=== PATIENT | female | born 1955 | race Caucasian/White ===

== ENCOUNTER 2016-09-10 16:33 | Emergency (ER) | payer OTHER ==
[2016-09-10] MEDS ORDERED: NAPROXEN 250 MG TAB As Ordered ONE (17:40)
--- NOTE | 2016-09-10 18:44 | REP ---
RIGHT RIB SERIES: Four views of the right ribs are performed. There is no evidence of acute fracture or bone lesion. An accompanying view of the chest demonstrates no acute infiltrate or pleural effusion. The heart and mediastinum are within normal limits. IMPRESSION: No evidence of right rib fracture. Signed by Kevin Giang MD 09/10/2016 07:17 P
--- NOTE | 2016-09-10 18:49 | EDDOCDS ---
Nurse's Notes [facility] Name: Juliana Fleming Age: 60 yrs Sex: Female : 1955 Arrival Date: 09/10/2016 Time: 16:33 Bed TR2 Private MD: Eladio Srinivasan Diagnosis: Other chest pain-Musculoskeletal, Right-Sided Presentation: 09/10 16:36 Presenting complaint: Patient states: pt reports falling on ice on 09/01/16, reports ead landing on right side. c/o right breast pain. states "I think I broke a rib.". Adult Sepsis Screening: The patient does not have new or worsening altered mentation. Patient's respiratory rate is less than 22. Systolic blood pressure is greater than 100. Patient has a qSOFA score of 0- Negative Sepsis Screen. Suicide/Homicide risk assessment- the patient denies having any suicidal and/or homicidal ideations and does not present with any other emotional, behavioral or mental health complaints. Status: Patient is not a service representative or dependent. Transition of care: patient was not received from another setting of care. 16:36 Acuity: JOSE E Level 4 ead 16:36 Method Of Arrival: Walkin/Carried/Asstd ead Triage Assessment: 16:39 General: Appears in no apparent distress, well nourished, well groomed, Behavior is ead appropriate for age, cooperative. Pain: Location: right breast Pain currently is 7 out of 10 on a pain scale. HIV screening NA for this visit Offered previously. Neurological: No deficits noted. Respiratory: Airway is patent Respiratory effort is even, unlabored, Reports pain with cough. Derm: Skin is pink, warm & dry. Musculoskeletal: Reports pain in right breast. Historical: - Allergies: Adhesives; Amitriptyline; Augmentin; Minocycline; Propranolol; Paxil; Sertraline; steri strips; Topamax; - Home Meds: 1. Neurontin 300 mg Oral tab 1 cap twice a day (Last dose: 09/10/2016) 2. azelastine nasal as needed 3. Claritin 10 mg Oral tab 1 tab as needed 4. Imitrex 50 mg Oral tab 1 tab as needed 5. Imitrex Sub-Q as needed 6. 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 - Family history: Not pertinent. - : The pt / caregiver states he / she is not on anticoagulants. Home medication list is obtained from the patient, [employer] import data. - Exposure Risk Screening:: None identified. Screenin:40 Screening information is obtained from the patient. Fall risk: No risks identified. ttb Assistance ADL's: requires no assistance with activities of daily living. Abuse/DV Screen: The patient / caregiver reports he/she is: not in a situation that causes fear, pain or injury. Nutritional screening: No deficits noted. Advance Directives: Currently, there is no health care proxy. home support is adequate. Assessment: 17:40 Adult Sepsis Screening: The patient does not have new or worsening altered mentation. ttb Patient's respiratory rate is less than 22. Systolic blood pressure is greater than 100. Patient has a qSOFA score of 0- Negative Sepsis Screen. General: Appears in no apparent distress, uncomfortable, well nourished, well groomed, Behavior is appropriate for age, cooperative, pleasant. Pain: Location: right chest. Neurological: Level of Consciousness is awake, alert. Cardiovascular: Chest pain is denied. Respiratory: Airway is patent Respiratory effort is even, unlabored, Denies cough. GI: Denies nausea, vomiting, pain. Derm: Skin is normal. Injury Description: occurred 9 days ago. 18:48 General: Appears in no apparent distress, Behavior is appropriate for age, cooperative, ead pleasant. Pain:. Neurological: No deficits noted. Respiratory: Airway is patent Respiratory effort is even, unlabored. Derm: Skin is pink, warm & dry. Vital Signs: 16:35 BP 168 / 86; Pulse 68; Resp 16; Temp 97.8(O); Pulse Ox 96% ; Weight 66.68 kg; Height 5 cmb ft. 3 in. (160.02 cm); Pain 7/10; 18:12 BP 132 / 78 Sitting (man/reg); ttb 16:35 Body Mass Index 26.04 (66.68 kg, 160.02 cm) cmb Vitals: 16:35 Log In Time: September 10, 2016 at 16:33. cmb ED Course: 16:34 Patient visited by Irina Bond. cmb 16:34 Patient moved to Waiting cmb 16:35 Eladio Srinivasan MD is Private Physician. cmb 16:36 Patient moved to Pre RCE cmb 16:37 Triage Initiated ead 16:54 Patient moved to Triage 3 mlb1 17:26 Alecia Pickard PA-C is PHCP. ef1 17:26 Velvet Hendrix MD is Attending Physician. ef1 17:26 Patient visited by Alecia Pickard PA-C. ef1 17:39 Patient moved to PR1 / 25 ttb 17:40 The patient / caregiver is instructed regarding the plan of care and ED course. Patient ttb has correct armband on for positive identification. 17:40 No IV's were initiated during this patient's visit. No procedures done that require ttb assistance. 17:47 Patient visited by Ana Luisa Nowak RN. ttb 18:08 Eladio Srinivasan MD is Referral Physician. ef1 18:14 [facility] Payment Agreement was scanned into [employer] and attached to record. jpb 18:48 Patient moved to TR2 ead Administered Medications: 17:42 Drug: Naproxen 500 mg [naproxen 250 mg tablet (2 tabs)] Route: PO; ttb RT: 17:49 Incentive Spirometry performed: 5 inspirations. Volume of inspiration: 2000 mls. sd7 Patient Education: Educated pt on proper technique and use of Incentive Spirometer. Order Results: There are currently no results for this order. Outcome: 18:08 Discharge ordered by Provider. ef1 18:48 Discharge Assessment: Patient awake and alert. obeys commands, Oriented to person, ead place and time. patient administered narcotics - no. The following High Risk Discharge criteria are identified: None. Discharged to home ambulatory. Condition: improved. Discharge instructions given to patient, Instructed on discharge instructions, follow up and referral plans. medication usage, no driving heavy equipment, no drinking with medication, Demonstrated understanding of instructions, medications, Pt was receptive of discharge instructions/ teaching. Prescriptions given X 2. No special radiology studies were completed. Property sent home with patient. 18:49 Patient left the ED. ead Signatures: Shaun Gardner RN RN mlb1 Alecia Pickard PA-C PALesterC ef1 Abdiaziz Miller [place] cmb Conner, Teresa, RN RN Shaila DriverRN RN Kellie Quinones,RT RT sd7 MTDD
--- NOTE | 2016-09-10 18:49 | EDDOCDS ---
Physician Documentation [facility] Name: Juliana Fleming Age: 60 yrs Sex: Female : 1955 Arrival Date: 09/10/2016 Time: 16:33 Bed TR2 Private MD: Eladio Srinivasan Disposition: 09/10/16 18:08 Discharged to Home/Self Care. Impression: Other chest pain - Musculoskeletal, Right-Sided. - Condition is Stable. - Discharge Instructions: Musculoskeletal Pain. - Prescriptions for Mobic 7.5 mg Oral Tablet - take 1 tablet by ORAL route once daily take with food; 20 tablet. Zanaflex 4 mg Oral Tablet - take 1 tablet by ORAL route At bedtime As needed Will cause drowsiness, do not take while driving/operating heavy machinery.; 20 tablet. - Medication Reconciliation, Local Pharmacy Hours form. - Follow up: Eladio Srinivasan; When: 1 - 2 days; Reason: Recheck today's complaints, Continuance of care. Follow up: Emergency Department; Reason: Worsening of conditions. - Problem is new. - Symptoms have improved. Historical: - Allergies: Adhesives; Amitriptyline; Augmentin; Minocycline; Propranolol; Paxil; Sertraline; steri strips; Topamax; - Home Meds: 1. Neurontin 300 mg Oral tab 1 cap twice a day (Last dose: 09/10/2016) 2. azelastine nasal as needed 3. Claritin 10 mg Oral tab 1 tab as needed 4. Imitrex 50 mg Oral tab 1 tab as needed 5. Imitrex Sub-Q as needed 6. 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 - Family history: Not pertinent. - : The pt / caregiver states he / she is not on anticoagulants. Home medication list is obtained from the patient, [employer] import data. - Exposure Risk Screening:: None identified. Vital Signs: 09/10 16:35 BP 168 / 86; Pulse 68; Resp 16; Temp 97.8(O); Pulse Ox 96% ; Weight 66.68 kg / 147 lbs; cmb Height 5 ft. 3 in. (160.02 cm); Pain 7/10; 18:12 BP 132 / 78 Sitting (man/reg); ttb 16:35 Body Mass Index 26.04 (66.68 kg, 160.02 cm) cmb MDM: 16:41 Rib Unilat W/PA Chest Only Ordered. EDMS 17:38 Naproxen 500 mg PO once; administer with food or milk ordered. ef1 17:38 Ice Pack ordered. ef1 17:38 Call Respiratory ordered. ef1 17:41 Call Respiratory complete. rs6 18:08 Recheck B/P ordered. ef1 18:13 Financial registration complete. jpb 18:14 [facility] Payment Agreement was scanned into [employer] and attached to record. jpb Administered Medications: 17:42 Drug: Naproxen 500 mg [naproxen 250 mg tablet (2 tabs)] Route: PO; ttb Signatures: Dispatcher [employer] EDMS Alecia Pickard, PA-C PA-C ef1 Abdiaziz Miller Teresa RN RN ttb Shaila Nielson,RN RN Karyn Jesus, JHON POWDER BLENDER rs6 The chart was reviewed and I authenticate all verbal orders and agree with the evaluation and treatment provided.Attachments: 18:14 [facility] Payment Agreement jpb MTDD
--- NOTE | 2016-09-12 19:50 | EDDOCDS ---
Physician Documentation [facility] Name: Juliana Fleming Age: 60 yrs Sex: Female : 1955 Arrival Date: 09/10/2016 Time: 16:33 Bed TR2 Private MD: Eladio Srinivasan Disposition: 09/10/16 18:08 Discharged to Home/Self Care. Impression: Other chest pain - Musculoskeletal, Right-Sided. - Condition is Stable. - Discharge Instructions: Musculoskeletal Pain. - Prescriptions for Mobic 7.5 mg Oral Tablet - take 1 tablet by ORAL route once daily take with food; 20 tablet. Zanaflex 4 mg Oral Tablet - take 1 tablet by ORAL route At bedtime As needed Will cause drowsiness, do not take while driving/operating heavy machinery.; 20 tablet. - Medication Reconciliation, Local Pharmacy Hours form. - Follow up: Eladio Srinivasan; When: 1 - 2 days; Reason: Recheck today's complaints, Continuance of care. Follow up: Emergency Department; Reason: Worsening of conditions. - Problem is new. - Symptoms have improved. Historical: - Allergies: Adhesives; Amitriptyline; Augmentin; Minocycline; Propranolol; Paxil; Sertraline; steri strips; Topamax; - Home Meds: 1. Neurontin 300 mg Oral tab 1 cap twice a day (Last dose: 09/10/2016) 2. azelastine nasal as needed 3. Claritin 10 mg Oral tab 1 tab as needed 4. Imitrex 50 mg Oral tab 1 tab as needed 5. Imitrex Sub-Q as needed 6. 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 - Family history: Not pertinent. - : The pt / caregiver states he / she is not on anticoagulants. Home medication list is obtained from the patient, [employer] [place] import data. - Exposure Risk Screening:: None identified. Vital Signs: 09/10 16:35 BP 168 / 86; Pulse 68; Resp 16; Temp 97.8(O); Pulse Ox 96% ; Weight 66.68 kg / 147 lbs; cmb Height 5 ft. 3 in. (160.02 cm); Pain 7/10; 18:12 BP 132 / 78 Sitting (man/reg); ttb 16:35 Body Mass Index 26.04 (66.68 kg, 160.02 cm) cmb MDM: 16:41 Rib Unilat W/PA Chest Only Ordered. EDMS 17:38 Naproxen 500 mg PO once; administer with food or milk ordered. ef1 17:38 Ice Pack ordered. ef1 17:38 Call Respiratory ordered. ef1 17:41 Call Respiratory complete. rs6 18:08 Recheck B/P ordered. ef1 18:13 Financial registration complete. jpb 18:14 [facility] Payment Agreement was scanned into [employer] and attached to record. jpb 09/12 08:31 T-Sheet-- Draft Copy was scanned into [employer] and attached to record. gb Administered Medications: 09/10 17:42 Drug: Naproxen 500 mg [naproxen 250 mg tablet (2 tabs)] Route: PO; ttb Signatures: Dispatcher [employer] EDMS Betty Gamez, Reg Reg gb Alecia Pickard, PETROS MORRELL ef1 Abdiaziz Miller Teresa, RN RN ttb Shaila Nielson,RN RN eaKaryn Lagunas, COMMERCIAL PRINT SALESMAN COMMERCIAL PRINT SALESMAN rs6 The chart was reviewed and I authenticate all verbal orders and agree with the evaluation and treatment provided.Attachments: 18:14 [facility] Payment Agreement b 09/12 08:31 T-Sheet-- Draft Copy gb Chart Complete MTDD
--- NOTE | 2016-09-12 19:50 | EDDOCDS ---
Nurse's Notes [facility] Name: Juliana Fleming Age: 60 yrs Sex: Female : 1955 Arrival Date: 09/10/2016 Time: 16:33 Bed TR2 Private MD: Eladio Srinivasan Diagnosis: Other chest pain-Musculoskeletal, Right-Sided Presentation: 09/10 16:36 Presenting complaint: Patient states: pt reports falling on ice on 09/01/16, reports ead landing on right side. c/o right breast pain. states "I think I broke a rib.". Adult Sepsis Screening: The patient does not have new or worsening altered mentation. Patient's respiratory rate is less than 22. Systolic blood pressure is greater than 100. Patient has a qSOFA score of 0- Negative Sepsis Screen. Suicide/Homicide risk assessment- the patient denies having any suicidal and/or homicidal ideations and does not present with any other emotional, behavioral or mental health complaints. Status: Patient is not a food service order clerk or dependent. Transition of care: patient was not received from another setting of care. 16:36 Acuity: JOSE E Level 4 ead 16:36 Method Of Arrival: Walkin/Carried/Asstd ead Triage Assessment: 16:39 General: Appears in no apparent distress, well nourished, well groomed, Behavior is ead appropriate for age, cooperative. Pain: Location: right breast Pain currently is 7 out of 10 on a pain scale. HIV screening NA for this visit Offered previously. Neurological: No deficits noted. Respiratory: Airway is patent Respiratory effort is even, unlabored, Reports pain with cough. Derm: Skin is pink, warm & dry. Musculoskeletal: Reports pain in right breast. Historical: - Allergies: Adhesives; Amitriptyline; Augmentin; Minocycline; Propranolol; Paxil; Sertraline; steri strips; Topamax; - Home Meds: 1. Neurontin 300 mg Oral tab 1 cap twice a day (Last dose: 09/10/2016) 2. azelastine nasal as needed 3. Claritin 10 mg Oral tab 1 tab as needed 4. Imitrex 50 mg Oral tab 1 tab as needed 5. Imitrex Sub-Q as needed 6. 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 - Family history: Not pertinent. - : The pt / caregiver states he / she is not on anticoagulants. Home medication list is obtained from the patient, [employer] import data. - Exposure Risk Screening:: None identified. Screenin:40 Screening information is obtained from the patient. Fall risk: No risks identified. ttb Assistance ADL's: requires no assistance with activities of daily living. Abuse/DV Screen: The patient / caregiver reports he/she is: not in a situation that causes fear, pain or injury. Nutritional screening: No deficits noted. Advance Directives: Currently, there is no health care proxy. home support is adequate. Assessment: 17:40 Adult Sepsis Screening: The patient does not have new or worsening altered mentation. ttb Patient's respiratory rate is less than 22. Systolic blood pressure is greater than 100. Patient has a qSOFA score of 0- Negative Sepsis Screen. General: Appears in no apparent distress, uncomfortable, well nourished, well groomed, Behavior is appropriate for age, cooperative, pleasant. Pain: Location: right chest. Neurological: Level of Consciousness is awake, alert. Cardiovascular: Chest pain is denied. Respiratory: Airway is patent Respiratory effort is even, unlabored, Denies cough. GI: Denies nausea, vomiting, pain. Derm: Skin is normal. Injury Description: occurred 9 days ago. 18:48 General: Appears in no apparent distress, Behavior is appropriate for age, cooperative, ead pleasant. Pain:. Neurological: No deficits noted. Respiratory: Airway is patent Respiratory effort is even, unlabored. Derm: Skin is pink, warm & dry. Vital Signs: 16:35 BP 168 / 86; Pulse 68; Resp 16; Temp 97.8(O); Pulse Ox 96% ; Weight 66.68 kg; Height 5 cmb ft. 3 in. (160.02 cm); Pain 7/10; 18:12 BP 132 / 78 Sitting (man/reg); ttb 16:35 Body Mass Index 26.04 (66.68 kg, 160.02 cm) cmb Vitals: 16:35 Log In Time: September 10, 2016 at 16:33. cmb ED Course: 16:34 Patient visited by Irina Bond. cmb 16:34 Patient moved to Waiting cmb 16:35 Eladio Srinivasan MD is Private Physician. cmb 16:36 Patient moved to Pre RCE cmb 16:37 Triage Initiated ead 16:54 Patient moved to Triage 3 mlb1 17:26 Alecia Pickard PA-C is PHCP. ef1 17:26 Velvet Hendrix MD is Attending Physician. ef1 17:26 Patient visited by Alecia Pickard PA-C. ef1 17:39 Patient moved to PR1 / 25 ttb 17:40 The patient / caregiver is instructed regarding the plan of care and ED course. Patient ttb has correct armband on for positive identification. 17:40 No IV's were initiated during this patient's visit. No procedures done that require ttb assistance. 17:47 Patient visited by Ana Luisa Nowak RN. ttb 18:08 Eladio Srinivasan MD is Referral Physician. ef1 18:14 [facility] Payment Agreement was scanned into [employer] and attached to record. jpb 18:48 Patient moved to TR2 ead 19:14 Rib Unilat W/PA Chest Only Returned. EDMS 09/12 08:31 T-Sheet-- Draft Copy was scanned into [employer] and attached to record. gb Administered Medications: 09/10 17:42 Drug: Naproxen 500 mg [naproxen 250 mg tablet (2 tabs)] Route: PO; ttb RT: 17:49 Incentive Spirometry performed: 5 inspirations. Volume of inspiration: 2000 mls. sd7 Patient Education: Educated pt on proper technique and use of Incentive Spirometer. Order Results: Radiology Order: Rib Unilat W/PA Chest Only Test: Rib Unilat W/PA Chest Only REASON FOR EXAMINATION: Trauma; RIGHT RIB SERIES:; ; Four views of the right ribs are performed. There is no evidence of acute; fracture or bone lesion.; ; An accompanying view of the chest demonstrates no acute infiltrate or pleural; effusion. The heart and mediastinum are within normal limits.; ; IMPRESSION:; ; No evidence of right rib fracture.; ; ; Signed by; Kevin Giang MD 09/10/2016 07:17 P; Outcome: 18:08 Discharge ordered by Provider. ef1 18:48 Discharge Assessment: Patient awake and alert. obeys commands, Oriented to person, ead place and time. patient administered narcotics - no. The following High Risk Discharge criteria are identified: None. Discharged to home ambulatory. Condition: improved. Discharge instructions given to patient, Instructed on discharge instructions, follow up and referral plans. medication usage, no driving heavy equipment, no drinking with medication, Demonstrated understanding of instructions, medications, Pt was receptive of discharge instructions/ teaching. Prescriptions given X 2. No special radiology studies were completed. Property sent home with patient. 18:49 Patient left the ED. ead Signatures: Dispatcher [employer] EDMS Betty Gamez, Reg Reg Shaun Biggs RN RN mlb1 Alecia Pickard, PA-C PA-C ef1 Abdiaziz Milelr [place] cmb Conner, Teresa RN RN Shaila DriverRN RN ead Kellie Mariscal,RT RT sd7 Chart Complete MTDD
--- NOTE | 2016-09-12 19:50 | EDDOCDS ---
Physician Documentation [facility] Name: Juliana Fleming Age: 60 yrs Sex: Female : 1955 Arrival Date: 09/10/2016 Time: 16:33 Bed TR2 Private MD: Eladio Srinivasan Disposition: 09/10/16 18:08 Discharged to Home/Self Care. Impression: Other chest pain - Musculoskeletal, Right-Sided. - Condition is Stable. - Discharge Instructions: Musculoskeletal Pain. - Prescriptions for Mobic 7.5 mg Oral Tablet - take 1 tablet by ORAL route once daily take with food; 20 tablet. Zanaflex 4 mg Oral Tablet - take 1 tablet by ORAL route At bedtime As needed Will cause drowsiness, do not take while driving/operating heavy machinery.; 20 tablet. - Medication Reconciliation, Local Pharmacy Hours form. - Follow up: Eladio Srinivasan; When: 1 - 2 days; Reason: Recheck today's complaints, Continuance of care. Follow up: Emergency Department; Reason: Worsening of conditions. - Problem is new. - Symptoms have improved. Historical: - Allergies: Adhesives; Amitriptyline; Augmentin; Minocycline; Propranolol; Paxil; Sertraline; steri strips; Topamax; - Home Meds: 1. Neurontin 300 mg Oral tab 1 cap twice a day (Last dose: 09/10/2016) 2. azelastine nasal as needed 3. Claritin 10 mg Oral tab 1 tab as needed 4. Imitrex 50 mg Oral tab 1 tab as needed 5. Imitrex Sub-Q as needed 6. 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 - Family history: Not pertinent. - : The pt / caregiver states he / she is not on anticoagulants. Home medication list is obtained from the patient, [employer] import data. - Exposure Risk Screening:: None identified. Vital Signs: 09/10 16:35 BP 168 / 86; Pulse 68; Resp 16; Temp 97.8(O); Pulse Ox 96% ; Weight 66.68 kg / 147 lbs; cmb Height 5 ft. 3 in. (160.02 cm); Pain 7/10; 18:12 BP 132 / 78 Sitting (man/reg); ttb 16:35 Body Mass Index 26.04 (66.68 kg, 160.02 cm) cmb MDM: 16:41 Rib Unilat W/PA Chest Only Ordered. EDMS 17:38 Naproxen 500 mg PO once; administer with food or milk ordered. ef1 17:38 Ice Pack ordered. ef1 17:38 Call Respiratory ordered. ef1 17:41 Call Respiratory complete. rs6 18:08 Recheck B/P ordered. ef1 18:13 Financial registration complete. jpb 18:14 [facility] Payment Agreement was scanned into [employer] and attached to record. jpb 09/12 08:31 T-Sheet-- Draft Copy was scanned into [employer] and attached to record. gb Administered Medications: 09/10 17:42 Drug: Naproxen 500 mg [naproxen 250 mg tablet (2 tabs)] Route: PO; ttb Signatures: Dispatcher [employer] EDMS Betty Gamez, Reg Reg gb Alecia Pickard, PETROS MORRELL ef1 Abdiaziz Miller Teresa, RN RN ttb Shaila Nielson,RN RN eaKaryn Lagunas, ADMINISTRATIVE VOLUNTEER ADMINISTRATIVE VOLUNTEER rs6 The chart was reviewed and I authenticate all verbal orders and agree with the evaluation and treatment provided.Attachments: 18:14 [facility] Payment Agreement b 09/12 08:31 T-Sheet-- Draft Copy gb Chart Complete MTDD
== END 2016-09-10 18:49 | disposition home or self-care (01) ==
LOC: M ED 16:33
DX: R07.89 Other chest pain (principal); W00.0XXA Fall on same level due to ice and snow, initial encounter; Y92.014 Private driveway to single-family (private) house as the place of occurrence of the external cause; Y93.89 Activity, other specified; Y99.8 Other external cause status; G43.909 Migraine, unspecified, not intractable, without status migrainosus; G70.9 Myoneural disorder, unspecified; Z79.899 Other long term (current) drug therapy; Z88.8 Allergy status to other drugs, medicaments and biological substances; Z88.1 Allergy status to other antibiotic agents; Z91.048 Other nonmedicinal substance allergy status

== ENCOUNTER → 2016-10-29 | Outpatient (REF) | payer OTHER | LOC: M SFHCPLAZ 11:52 | PROVIDERS: ATTEND Dermatology | DX: D04.5 Carcinoma in situ of skin of trunk (principal) ==

== ENCOUNTER → 2016-11-26 | Outpatient (REF) | payer OTHER | LOC: M SFHCPLAZ 15:50 | PROVIDERS: ATTEND Dermatology | DX: D23.60 Other benign neoplasm of skin of unspecified upper limb, including shoulder (principal) ==

== ENCOUNTER → 2017-03-30 | Outpatient (CLI) | payer OTHER ==
[~2017-03-30] MED LIST: ALEN70TA39 PO; BUPR150T5 PO; BUPR15TA PO; GABA-282 PO; IMIT50TA PO; IMIT6INJ SC; LISI-542 PO; SUMA100T2
[2017-04-03 00:07] LABS: GAD-65 AUTOANTIBODY <5.0 U/mL (0.0-5.0); VGCC ANTIBODY Negative (Negative)
== END ==
LOC: M WUC 18:29
PROVIDERS: ATTEND Psychiatry & Neurology Neurology
DX: M25.60 Stiffness of unspecified joint, not elsewhere classified (principal); M62.838 Other muscle spasm

== ENCOUNTER 2017-04-24 08:55 | Outpatient (CLI) | payer OTHER ==
[~2017-04-24] VITALS: Ht 160 cm; Wt 63.5 kg
[2017-04-24] MEDS ORDERED: NS 1,000 ML IV ONE (09:00)
[2017-04-24] MEDS ORDERED: PROPOFOL 200 MG/20 ML VIAL As Ordered ONE (09:49)
[2017-04-24] MEDS ORDERED: LIDOCAINE 2% INJ 100 MG/5 ML SDV (FOR ANES.) As Ordered ONE (09:49)
--- NOTE | 2017-04-24 10:00 | ROOR ---
Patient Name: Juliana Fleming Procedure Date: 04/24/2017 9:42 AM Date of : 1955 Age: 61 Room: [facility] Gender: Female Note Status: Finalized Procedure: Colonoscopy Indications: Screening for colorectal malignant neoplasm Providers: Twin ARMANDO MD Referring MD: HAMZAH ANTONIO MD Requesting Provider: Medicines: Monitored Anesthesia Care Complications: No immediate complications. Procedure: Pre-Anesthesia Assessment: - The heart rate, respiratory rate, oxygen saturations, blood pressure, adequacy of pulmonary ventilation, and response to care were monitored throughout the procedure. The Colonoscope was introduced through the anus and advanced to the cecum, identified by appendiceal orifice and ileocecal valve. The colonoscopy was performed without difficulty. The patient tolerated the procedure well. The quality of the bowel preparation was good. Findings: The perianal and digital rectal examinations were normal. The colon (entire examined portion) was moderately redundant. The entire examined colon appeared normal on direct and retroflexion views. (Exam: Complete, Prep: Good or Excellent.) Impression: - (Exam: Complete, Prep: Good or Excellent.) - Small internal hemorrhoids. - The colon is normal on direct and retroflexion views. - No specimens collected. Recommendation: - Repeat colonoscopy in 10 years for screening purposes. Twin Armando MD Twin ARMANDO MD 04/24/2017 10:00:09 AM This report has been signed electronically. Number of Addenda: 0 Note Initiated On: 04/24/2017 9:42 AM Estimated Blood Loss: Estimated blood loss: none.
[2017-04-24 10:15] VITALS: BP 129/77
== END 2017-04-24 10:20 | disposition home or self-care (01) ==
LOC: M OPP 08:55
PROVIDERS: ATTEND Internal Medicine Gastroenterology
DX: Z12.11 Encounter for screening for malignant neoplasm of colon (principal); K64.8 Other hemorrhoids; M19.90 Unspecified osteoarthritis, unspecified site; F41.9 Anxiety disorder, unspecified; F33.9 Major depressive disorder, recurrent, unspecified; G25.82 Stiff-man syndrome; Z79.899 Other long term (current) drug therapy; Z88.0 Allergy status to penicillin; Z88.1 Allergy status to other antibiotic agents; Z88.8 Allergy status to other drugs, medicaments and biological substances; Z91.018 Allergy to other foods; L23.1 Allergic contact dermatitis due to adhesives

== ENCOUNTER → 2017-08-13 | Outpatient (REF) | payer OTHER | LOC: M SFHCLERA 09:46 | PROVIDERS: ATTEND Dermatology | DX: L85.8 Other specified epidermal thickening (principal) ==

== ENCOUNTER → 2017-09-09 | Outpatient (REF) | payer OTHER | LOC: M LAB REF 11:57 | DX: L82.1 Other seborrheic keratosis (principal) ==

== ENCOUNTER → 2017-10-07 | Outpatient (REF) | payer OTHER ==
[2017-10-07 20:58] LABS: TOTAL 25(OH) VITAMIN D 20.8 NG/ML (30.0-100.0)
== END ==
LOC: M SFHCPLAZ 16:25 → M LRY 16:42
DX: E55.9 Vitamin D deficiency, unspecified (principal)
CPT/HCPCS: 82306

== ENCOUNTER → 2017-11-11 | Outpatient (REF) | payer OTHER | LOC: M SFHCLERA 13:49 | DX: R23.4 Changes in skin texture (principal) ==

== ENCOUNTER → 2018-04-21 | Outpatient (CLI) | payer OTHER ==
[2018-04-21 12:34] LABS: TOTAL 25(OH) VITAMIN D 36.9 NG/ML (30.0-100.0)
[2018-04-21 13:01] LABS: ANION GAP 5 MEQ/L (8-16); BLOOD UREA NITROGEN 13 MG/DL (7-18); CALCIUM LEVEL 8.9 MG/DL (8.8-10.2); CARBON DIOXIDE LEVEL 29 MEQ/L (21-32); CHLORIDE LEVEL 109 MEQ/L (98-107); GLOMERULAR FILTRATION RATE > 60.0 (>45); GLUCOSE, FASTING 89 MG/DL (70-100); POTASSIUM SERUM 4.6 MEQ/L (3.5-5.1); SODIUM LEVEL 143 MEQ/L (136-145)
== END ==
LOC: M WUC 10:35
DX: N18.2 Chronic kidney disease, stage 2 (mild) (principal); I12.9 Hypertensive chronic kidney disease with stage 1 through stage 4 chronic kidney disease, or unspecified chronic kidney disease
CPT/HCPCS: 82306

== ENCOUNTER → 2018-07-15 | Outpatient (REF) | payer OTHER ==
[2018-07-15 16:38] LABS: TOTAL 25(OH) VITAMIN D 26.3 NG/ML (30.0-100.0)
[2018-07-16 11:07] LABS: HEPATITIS B SURFACE ANTIBODY POSITIVE (POSITIVE)
[2018-07-21 00:06] LABS: POLIO ANTIBODIES/POLIOMYELITIS 1:16 (Neg:<1:8)
== END ==
LOC: M SFHCPLAZ 13:33
DX: Z78.9 Other specified health status (principal)

== ENCOUNTER → 2018-10-19 | Outpatient (REF) | payer OTHER ==
[~2018-10-19] MED LIST changes: -ALEN70TA39 PO; +ALEN70TA57 PO; -GABA-282 PO; +GABA-843 PO
[2018-10-19 18:21] LABS: BLOOD UREA NITROGEN 20 MG/DL (7-18); CALCIUM LEVEL 9.3 MG/DL (8.8-10.2); CARBON DIOXIDE LEVEL 31 MEQ/L (21-32); CHLORIDE LEVEL 105 MEQ/L (98-107); CREATININE FOR GFR 0.87 MG/DL (0.55-1.30); GLOMERULAR FILTRATION RATE > 60.0 (>45); GLUCOSE, FASTING 93 MG/DL (70-100); POTASSIUM SERUM 4.1 MEQ/L (3.5-5.1); SODIUM LEVEL 143 MEQ/L (136-145)
[2018-10-19 18:33] LABS: TOTAL 25(OH) VITAMIN D 33.2 NG/ML (30.0-100.0)
== END ==
LOC: M SFHCPLAZ 15:20
PROVIDERS: ATTEND Nurse Practitioner Family
DX: E55.9 Vitamin D deficiency, unspecified (principal); I10 Essential (primary) hypertension; N18.2 Chronic kidney disease, stage 2 (mild)

== ENCOUNTER → 2018-11-28 | Outpatient (CLI) | payer OTHER ==
--- NOTE | 2018-11-29 07:23 | REP ---
LEFT CALCANEUS: Two views left calcaneus performed. No fracture or dislocation is seen. There is a small inferior calcaneal spur. No other significant findings are seen. IMPRESSION: Mild inferior calcaneal spurring. Electronically Signed by Kevin Giang MD 11/29/2018 09:37 A
--- NOTE | 2018-11-29 07:23 | REP ---
LEFT FOOT SERIES: Four views of the left foot are performed. No fracture or dislocation is seen. There is a small inferior calcaneal spur. There is moderate narrowing at the first metatarsal phalangeal joint. There is mild diffuse narrowing of the interphalangeal joints. IMPRESSION: Mild degenerative changes as above. Electronically Signed by Kevin Giang MD 11/29/2018 09:37 A
== END ==
LOC: M WUC 17:16
PROVIDERS: ATTEND Physician Assistant
DX: M77.32 Calcaneal spur, left foot (principal)

== ENCOUNTER → 2019-02-01 | Outpatient (CLI) | payer OTHER ==
[~2019-02-01] MED LIST changes: -ALEN70TA57 PO; +ALEN70TA74 PO
[2019-02-01 13:15] LABS: BLOOD UREA NITROGEN 17 MG/DL (7-18); CARBON DIOXIDE LEVEL 30 MEQ/L (21-32); CHLORIDE LEVEL 106 MEQ/L (98-107); CHOLESTEROL LEVEL 210 MG/DL (<200); CHOLESTEROL RISK RATIO 3.088 (<5); CREATININE FOR GFR 0.87 MG/DL (0.55-1.30); GLOMERULAR FILTRATION RATE > 60.0 (>45); GLUCOSE, FASTING 74 MG/DL (70-100); HDL CHOLESTEROL 68 MG/DL (>40); LDL CHOLESTEROL 126 MG/DL (<100); NON-HDL-C 142 MG/DL; POTASSIUM SERUM 4.2 MEQ/L (3.5-5.1); SODIUM LEVEL 143 MEQ/L (136-145); TRIGLYCERIDES LEVEL 79 MG/DL (<150)
== END ==
LOC: M WUC 10:00
PROVIDERS: ATTEND Nurse Practitioner Family
DX: E78.5 Hyperlipidemia, unspecified (principal); I10 Essential (primary) hypertension

== ENCOUNTER → 2019-04-29 | Outpatient (REF) | payer OTHER | LOC: M SFHCPLAZ 12:18 | PROVIDERS: ATTEND Nurse Practitioner Family | DX: E78.5 Hyperlipidemia, unspecified (principal) ==

== ENCOUNTER → 2019-05-16 | Outpatient (REF) | payer OTHER ==
[2019-05-16 17:39] LABS: ALBUMIN 4.2 GM/DL (3.2-5.2); BILIRUBIN,DIRECT 0.2 MG/DL (0.0-0.2); BILIRUBIN,TOTAL 0.7 MG/DL (0.2-1.0); TOTAL PROTEIN 6.8 GM/DL (6.4-8.2)
== END ==
LOC: M SFHCPLAZ 15:37
PROVIDERS: ATTEND Nurse Practitioner Family
DX: E78.5 Hyperlipidemia, unspecified (principal)

== ENCOUNTER → 2019-05-16 | Outpatient (REF) | payer OTHER | LOC: M SFHCPLAZ 11:55 | PROVIDERS: ATTEND Dermatology | DX: D49.2 Neoplasm of unspecified behavior of bone, soft tissue, and skin (principal) ==

== ENCOUNTER → 2019-07-18 | Outpatient (REF) | payer OTHER ==
[2019-07-18 11:21] LABS: ALBUMIN 4.1 GM/DL (3.2-5.2); ALT/SGPT 40 U/L (12-78); BILIRUBIN,TOTAL 0.6 MG/DL (0.2-1.0); BLOOD UREA NITROGEN 13 MG/DL (7-18); CALCIUM LEVEL 9.4 MG/DL (8.8-10.2); CARBON DIOXIDE LEVEL 31 MEQ/L (21-32); CHLORIDE LEVEL 107 MEQ/L (98-107); CHOLESTEROL LEVEL 154 MG/DL (<200); CREATININE FOR GFR 0.87 MG/DL (0.55-1.30); GLOMERULAR FILTRATION RATE > 60.0 (>45); GLUCOSE, FASTING 87 MG/DL (70-100); HDL CHOLESTEROL 70 MG/DL (>40); LDL CHOLESTEROL 76 MG/DL (<100); NON-HDL-C 84 MG/DL; POTASSIUM SERUM 4.8 MEQ/L (3.5-5.1); SODIUM LEVEL 143 MEQ/L (136-145); TOTAL PROTEIN 6.3 GM/DL (6.4-8.2); TRIGLYCERIDES LEVEL 41 MG/DL (<150)
== END ==
LOC: M SFHCPLAZ 08:26
PROVIDERS: ATTEND Family Medicine
DX: E78.5 Hyperlipidemia, unspecified (principal)

== ENCOUNTER → 2020-07-27 | Outpatient (REF) | payer OTHER ==
[2020-07-27 17:04] LABS: HEMATOCRIT 44.4 % (36.0-47.0); HEMOGLOBIN 14.6 g/dl (12.0-15.5); MEAN CORPUSCULAR HEMOGLOBIN 30.4 pg (27.0-33.0); MEAN CORPUSCULAR HGB CONC 32.9 g/dl (32.0-36.5); MEAN CORPUSCULAR VOLUME 92.5 fl (80.0-96.0); PLATELET COUNT, AUTOMATED 216 10^3/uL (150-450); WHITE BLOOD COUNT 6.4 10^3/uL (4.0-10.0)
[2020-07-27 17:24] LABS: BLOOD UREA NITROGEN 14 MG/DL (7-18); CALCIUM LEVEL 9.7 MG/DL (8.8-10.2); CARBON DIOXIDE LEVEL 32 MEQ/L (21-32); CHLORIDE LEVEL 106 MEQ/L (98-107); CREATININE FOR GFR 0.88 MG/DL (0.55-1.30); GLOMERULAR FILTRATION RATE > 60.0 (>45); GLUCOSE, FASTING 83 MG/DL (70-100); POTASSIUM SERUM 4.3 MEQ/L (3.5-5.1); SODIUM LEVEL 143 MEQ/L (136-145)
[2020-07-27 17:35] LABS: TOTAL 25(OH) VITAMIN D 55.2 NG/ML (30.0-100.0)
== END ==
LOC: M SFHCPLAZ 14:09
PROVIDERS: ATTEND Family Medicine
DX: N18.2 Chronic kidney disease, stage 2 (mild) (principal); E55.9 Vitamin D deficiency, unspecified; M75.111 Incomplete rotator cuff tear or rupture of right shoulder, not specified as traumatic

== ENCOUNTER → 2020-10-17 | Outpatient (REF) | payer OTHER ==
[~2020-10-17] MED LIST changes: -ALEN70TA74 PO; +ALEN70TA82 PO; +GABA-282 PO; -GABA-843 PO; -LISI-542 PO; +LISI-898 PO
== END ==
LOC: M LAB REF 17:05
PROVIDERS: ATTEND Dermatology
DX: L57.0 Actinic keratosis (principal); L82.1 Other seborrheic keratosis

== ENCOUNTER → 2020-10-31 | Outpatient (REF) | payer OTHER ==
[2020-10-31 14:19] LABS: ALT/SGPT 32 U/L (12-78); BILIRUBIN,TOTAL 0.3 MG/DL (0.2-1.0); BLOOD UREA NITROGEN 21 MG/DL (7-18); CALCIUM LEVEL 9.4 MG/DL (8.8-10.2); CARBON DIOXIDE LEVEL 31 MEQ/L (21-32); CHLORIDE LEVEL 106 MEQ/L (98-107); CREATININE FOR GFR 0.76 MG/DL (0.55-1.30); GLOMERULAR FILTRATION RATE > 60.0 (>45); GLUCOSE, FASTING 88 MG/DL (70-100); POTASSIUM SERUM 4.4 MEQ/L (3.5-5.1); SODIUM LEVEL 143 MEQ/L (136-145); TOTAL PROTEIN 6.6 GM/DL (6.4-8.2)
== END ==
LOC: M SFHCPLAZ 11:17
PROVIDERS: ATTEND Nurse Practitioner Adult Health
DX: I10 Essential (primary) hypertension (principal)

== ENCOUNTER → 2021-08-12 | Outpatient (REF) | payer OTHER | LOC: M SFHCPLAZ 12:55 | PROVIDERS: ATTEND Family Medicine | DX: J06.9 Acute upper respiratory infection, unspecified (principal) ==

== ENCOUNTER → 2021-10-13 | Outpatient (REF) | payer OTHER ==
[~2021-10-13] MED LIST changes: -LISI-898 PO; +LISI5TAB11 PO
== END ==
LOC: M WUC 17:39
PROVIDERS: ATTEND Physician Assistant
DX: R30.0 Dysuria (principal)

== ENCOUNTER → 2021-11-04 | Outpatient (CLI) | payer OTHER ==
[2021-11-04 12:35] LABS: HEMATOCRIT 41.6 % (36.0-47.0); HEMOGLOBIN 13.7 g/dl (12.0-15.5); MEAN CORPUSCULAR HEMOGLOBIN 29.9 pg (27.0-33.0); MEAN CORPUSCULAR HGB CONC 32.9 g/dl (32.0-36.5); MEAN CORPUSCULAR VOLUME 90.8 fl (80.0-96.0); PLATELET COUNT, AUTOMATED 203 10^3/uL (150-450); RED BLOOD COUNT 4.58 10^6/uL (4.00-5.40)
[2021-11-04 14:59] LABS: ALT/SGPT 34 U/L (12-78); BILIRUBIN,TOTAL 0.4 MG/DL (0.2-1.0); BLOOD UREA NITROGEN 14 MG/DL (7-18); CALCIUM LEVEL 9.6 MG/DL (8.8-10.2); CARBON DIOXIDE LEVEL 33 MEQ/L (21-32); CHLORIDE LEVEL 106 MEQ/L (98-107); CREATININE FOR GFR 0.95 MG/DL (0.55-1.30); GLOMERULAR FILTRATION RATE > 60.0 (>45); GLUCOSE, FASTING 88 MG/DL (70-100); SODIUM LEVEL 143 MEQ/L (136-145); TOTAL PROTEIN 6.5 GM/DL (6.4-8.2)
== END ==
LOC: M WUC 09:57
PROVIDERS: ATTEND Nurse Practitioner Adult Health
DX: R05.9 Cough, unspecified (principal); I10 Essential (primary) hypertension

== ENCOUNTER → 2022-01-31 | Outpatient (CLI) | payer OTHER ==
[~2022-01-31] MED LIST changes: +BUPR-71 PO; -BUPR150T5 PO
== END ==
LOC: M CARPUL 07:42
PROVIDERS: ATTEND Nurse Practitioner Adult Health
DX: R05.9 Cough, unspecified (principal)

== ENCOUNTER → 2022-02-07 | Outpatient (CLI) | payer OTHER | LOC: M RAD 18:16 | PROVIDERS: ATTEND Family Medicine | DX: R05.3 Chronic cough (principal) ==

== ENCOUNTER → 2022-02-10 | Outpatient (CLI) | payer OTHER ==
[~2022-02-10] MED LIST changes: +METHACHOLINE KIT (J7674) INH ONE
== END ==
LOC: M CARPUL 10:46
PROVIDERS: ATTEND Nurse Practitioner Adult Health
DX: R05.9 Cough, unspecified (principal)
CPT/HCPCS: 94070; J7674

== ENCOUNTER → 2024-06-28 | Outpatient (CLI) | payer OTHER ==
[~2024-06-28] MED LIST changes: +GABA-1172 PO; -GABA-282 PO; -METHACHOLINE KIT (J7674) INH ONE
[2024-06-28 20:18] LABS: ALKALINE PHOSPHATASE 45 U/L (46-116); ALT/SGPT 25 U/L (7.0-40); AST/SGOT 18 U/L (<34); BILIRUBIN,TOTAL 0.4 MG/DL (0.3-1.2); BLOOD UREA NITROGEN 17 MG/DL (9-23); CALCIUM LEVEL 9.7 MG/DL (8.3-10.6); CARBON DIOXIDE LEVEL 29 MMOL/L (20-31); CHLORIDE LEVEL 109 MMOL/L (98-107); CREATININE FOR GFR 0.84 MG/DL (0.55-1.30); GLOMERULAR FILTRATION RATE > 60.0 (>45); GLUCOSE, FASTING 119 MG/DL (74-106); POTASSIUM SERUM 4.1 MMOL/L (3.5-5.1); SODIUM LEVEL 144 MMOL/L (136-145); TOTAL PROTEIN 6.4 G/DL (5.7-8.2)
== END ==
LOC: M WUC 13:56
PROVIDERS: ATTEND Physician Assistant
DX: M25.531 Pain in right wrist (principal)

== ENCOUNTER → 2024-09-23 | Outpatient (CLI) | payer OTHER | LOC: M WUC 09:36 | PROVIDERS: ATTEND Student in an Organized Health Care Education/Training Program | DX: R91.8 Other nonspecific abnormal finding of lung field (principal) ==

== ENCOUNTER → 2024-12-28 | Outpatient (REF) | payer OTHER | LOC: M SFHCDERM 17:21 | PROVIDERS: ATTEND Physician Assistant | DX: D48.9 Neoplasm of uncertain behavior, unspecified (principal) ==

== ENCOUNTER → 2025-01-03 | Outpatient (REF) | payer OTHER | LOC: M SFHCDERM 16:25 | PROVIDERS: ATTEND Physician Assistant | DX: C44.92 Squamous cell carcinoma of skin, unspecified (principal) ==

== ENCOUNTER → 2025-01-23 | Outpatient (REF) | payer OTHER | LOC: M SFHCDERM 16:51 | PROVIDERS: ATTEND Physician Assistant | DX: Z51.89 Encounter for other specified aftercare (principal) ==